=== PATIENT | female | born 1990 | race Caucasian/White ===

== ENCOUNTER 2018-04-23 14:47 | Emergency (ER) | payer OTHER ==
[~2018-04-23] VITALS: Ht 152.4 cm; Wt 47.2 kg
[~2018-04-23 14:47] MED LIST: CEPH500C PO; CLOB15CR10 TOP; NORE1TAB PO; [UNRECOGNIZED DRUG - CODE] PO; [UNRECOGNIZED DRUG - CODE] TOP
[2018-04-23 14:49] VITALS: Ht 152.4 cm; Wt 47.2 kg
[2018-04-23] MEDS ORDERED: KETOROLAC 15 MG INJ IV STA (15:45)
[2018-04-23] MEDS ORDERED: IOHEXOL 300MG/ML 150 ML BTL ONE (18:55)
[2018-04-23] MEDS ORDERED: SOD CHLORIDE 0.9% 100 ML ONE (18:55)
[2018-04-23] MEDS ORDERED: DEXAMETHASONE 10 MG/ML 1 ML INJ IV ONE (20:00)
[2018-04-23] MEDS ORDERED: PRED20TA PO (20:01)
[2018-04-23] MEDS ORDERED: TRAM50TA2 PO (20:01)
[2018-04-23] MEDS ORDERED: DOCU-144 PO (20:01)
--- NOTE | 2018-04-23 20:06 | ERD ---
ER Documentation Chief Complaint Chief Complaint pt bib family with c/o abd pain and blood in stool this am HPI 27-year-old female presents with bright red blood in the stool this morning. She has had some dark stools for a few days as well that she is taking Pepto- Bismol. She states that she has had intermittent constipation and diarrhea although she is having watery stools with blood today. By history it sounds that she has not had true constipation or hard stools. She denies fevers. She has nausea. She has a history of endometriosis and ovarian cyst. Denies any family history of inflammatory bowel disorder. ROS All systems reviewed and are negative except as per history of present illness. Medications Home Meds Active Scripts Tramadol HCl (Tramadol HCl) 50 Mg Tablet, 50 MG PO Q4 PRN for PAIN, #15 TAB Prov:RAYMUNDO HOFF MD 04/23/18 Docusate Sodium* (Colace*) 100 Mg Capsule, 100 MG PO BID, #30 CAP Prov:RAYMUNDO HOFF MD 04/23/18 Prednisone* (Prednisone*) 20 Mg Tab, 20 MG PO DAILY for 5 Days, TAB Prov:RAYMUNDO HOFF MD 04/23/18 Reported Medications Benzoin Compound (Alexi-Protect Sterile) 36 Ea Med..swab, 1 UNIT TOP PRN 10/11/11 Acetamin/Butalbital/Caffeine (Fioricet) 1 Tab Tab, 1 TAB PO PRN 10/11/11 Clobetasol Propionate (Embeline) 15 Gm Cream.gm., 15 GM TOP TID 10/11/11 Cephalexin* (Cephalexin*) 500 Mg Capsule, 500 MG PO TID 10/11/11 Noreth A-Et Estra/Fe Fumarate (Loestrin 24 Fe Tablet) 1 Tab Tablet, 1 TAB PO DAILY 10/11/11 Allergies Allergies: Coded Allergies: No Known Allergy (Unverified , 10/11/11) PMhx/Soc History of Surgery: Yes (CYST REMOVE ANTERIOR NECK, EPIDURAL X 3 ) Anesthesia Reaction: No Hx Neurological Disorder: Yes (TENSION HEADACHE) Hx Respiratory Disorders: No Hx Cardiac Disorders: No Hx Psychiatric Problems: No Hx Miscellaneous Medical Probl: No Hx Alcohol Use: Yes (SOCIALLY) Hx Substance Use: No Hx Tobacco Use: No Smoking Status: Never smoker FmHx Family History: No diabetes, No coronary disease, No other Physical Exam Vitals Vital Signs Date Temp Pulse Resp B/P (MAP) Pulse Ox O2 O2 Flow FiO2 Time Delivery Rate 04/23/18 98.2 75 75 127/70 98 Room Air 20:28 (89) 04/23/18 97.9 88 18 149/88 98 14:49 (108) Physical Exam Const: No acute distress Head: Atraumatic Eyes: Normal Conjunctiva ENT: Normal External Ears, Nose and Mouth. Neck: Full range of motion. No meningismus. Resp: Clear to auscultation bilaterally Cardio: Regular rate and rhythm, no murmurs Abd: Soft, mildly tender in the lower abdomen. No tenderness McBurney's point no Sellers sign. No rebound. Non distended. Normal bowel sounds Skin: No petechiae or rashes Back: No midline or flank tenderness Ext: No cyanosis, or edema Neur: Awake and alert Psych: Normal Mood and Affect Result Diagram: 04/23/18 1720 04/23/18 1720 Results 24 hrs Laboratory Tests Test 04/23/18 16:07 04/23/18 16:22 04/23/18 17:20 Urine Color STRAW Urine Clarity CLEAR Urine pH 7.0 Urine Specific [place] 1.004 Urine Ketones NEGATIVE mg/dL Urine Nitrite NEGATIVE mg/dL Urine Bilirubin NEGATIVE mg/dL Urine Urobilinogen NEGATIVE mg/dL Urine Leukocyte Esterase NEGATIVE Alejandrina/ul Urine Hemoglobin NEGATIVE mg/dL Urine Glucose NEGATIVE mg/dL Urine Total Protein NEGATIVE mg/dl POC Beta HCG, Qualitative NEGATIVE White Blood Count 13.2 10^3/ul Red Blood Count 4.91 10^6/ul Hemoglobin 14.6 g/dl Hematocrit 44.6 % Mean Corpuscular Volume 90.8 fl Mean Corpuscular Hemoglobin 29.7 pg Mean Corpuscular 32.7 g/dl Hemoglobin Concent Red Cell Distribution Width 12.5 % Platelet Count 252 10^3/UL Mean Platelet Volume 9.5 fl Immature Granulocytes % 0.500 % Neutrophils % 87.1 % Lymphocytes % 10.2 % Monocytes % 2.0 % Eosinophils % 0.0 % Basophils % 0.2 % Nucleated Red Blood Cells % 0.0 /100WBC Immature Granulocytes # 0.070 10^3/ul Neutrophils # 11.5 10^3/ul Lymphocytes # 1.3 10^3/ul Monocytes # 0.3 10^3/ul Eosinophils # 0.0 10^3/ul Basophils # 0.0 10^3/ul Nucleated Red Blood Cells # 0.0 10^3/ul Sodium Level 132 mmol/L Potassium Level 4.6 mmol/L Chloride Level 99 mmol/L Carbon Dioxide Level 20 mmol/L Anion Gap 13 Blood Urea Nitrogen 9 mg/dl Creatinine 0.45 mg/dl Est Glomerular Filtrat > 60 mL/min Rate mL/min Glucose Level 103 mg/dl Calcium Level 9.7 mg/dl Total Bilirubin 0.1 mg/dl Direct Bilirubin 0.00 mg/dl Indirect Bilirubin 0.1 mg/dl Aspartate Amino Transf (AST/SGOT) 31 IU/L Alanine < 6 IU/L Aminotransferase (ALT/SGPT) Alkaline Phosphatase 76 IU/L Total Protein 8.1 g/dl Albumin 4.4 g/dl Globulin 3.70 g/dl Albumin/Globulin Ratio 1.18 Lipase 107 U/L Current Medications Medications Dose Sig/Marianne Start Time Status Last (Trade) Ordered Route PRN Stop Time Admin Dose Reason Admin Ketorolac 15 mg ONCE STAT 04/23/18 DC Tromethamine IV 15:45 04/23/18 (Toradol) 15:46 Sodium 100 ml @ ud STK-MED 04/23/18 DC Chloride ONCE .ROUTE 18:55 04/23/18 18:56 Iohexol 150 ml STK-MED 04/23/18 DC (Omnipaque ONCE .ROUTE 18:55 04/23/18 300mg/ ml) 18:56 6 mg ONCE ONCE 04/23/18 DC 04/23/18 Dexamethasone IV 20:00 04/23/18 20:01 (Decadron) 20:01 Procedures/MDM Patient presents with lower abdominal pain and rectal bleeding of uncertain etiology. CBC shows minimal leukocytosis without anemia. CO2 is 20 slight decrease in sodium. Urine shows no significant abnormalities and urine hCG is negative. PROCEDURE: CT Abdomen and Pelvis with contrast. CLINICAL INDICATION: Pain. TECHNIQUE: CT scan of the abdomen and pelvis with contrast was performed on a multi-detector high-resolution CT scanner. The patient was scanned following the uncomplicated intravenous administration of 100 cc of Omnipaque 300 and oral contrast. Coronal and sagittal reformatted images were obtained from the axial source images. Images were reviewed on a high-resolution PACS workstation. The total exam CTDI equals 4.1 mGy and the total exam DLP equals 182.5 mGy-cm. DICOM images are available. One or more of the following dose reduction techniques were utilized: 1.) Automated exposure control 2.) Adjustment of the mA +/- kV according to patient's size 3.) Use of iterative reconstruction technique. COMPARISON: None. FINDINGS: Partially visualized minimal bibasilar pulmonary subsegmental atelectasis. Heart base appears normal. Systemic vasculature appears grossly normal. No pathologic lymphadenopathy identified by imaging criteria. Liver demonstrates normal size and contour, without identifiable focal mass lesion. Portal vein enhances normally. Gallbladder is mildly distended without identifiable biliary ductal dilatation. Pancreas, spleen and adrenal glands appear normal. Bowel is unobstructed without free air. Enteric contrast opacifies distal small bowel and colon to the level of the hepatic flexure. Appendix is nondilated. No identifiable significant diverticulosis nor evidence of acute diverticulitis. Contiguous mild circumferential wall thickening involves the mid - distal descending colon, sigmoid colon and rectum with mild associated mesocolic/perir ectal edema and mild dependent pelvic free fluid, suspicious for inflammatory proctocolitis such as ulcerative colitis or possibly Crohn's disease. Kidneys perfuse normally without identifiable focal mass lesion. No nephrolithiasis nor hydronephrosis. The ureters run unobstructed to a normal - appearing incompletely distended bladder. The uterus appears within normal limits for age. No pathologic adnexal mass identified. Osseous structures are intact with mild lumbar levoscoliosis which may reflect muscle spasm. Tiny fatty umbilical hernia. IMPRESSION: 1. Distal left colonic and rectal wall thickening suspicious for inflammatory proctocolitis such as ulcerative colitis or possibly Crohn's disease. Clinical correlation and follow-up colonoscopy recommended. 2. The bowel is unobstructed without evidence of perforation or abscess, and the appendix is nondilated. 3. No nephrolithiasis nor hydronephrosis. 4. Mild lumbar levoscoliosis may reflect muscle spasm. RPTAT: HSAN Physician Jorge Date Time Electronically viewed and signed by Mark Conde Physician on 04/23/2018 19:50 xN/ CC: RAYMUNDO HOFF MD Patient presents with signs and symptoms and radiologic findings consistent with stable rectal bleed with possibility of inflammatory bowel disorder such as Crohn's disease or ulcerative colitis. There is no signs of obstruction, abscess, perforation, sepsis. She was given Decadron 6 mrem IV. We will treat with a short course of prednisone, tramadol, Colace and recommendations for gastroenterology evaluation. She was advised she may need authorization from primary doctor for gastroneurology visit. Should return for fevers, vomiting, worsening pain, new worsening symptoms with primary care doctor. The patient was stable with no new complaints during the ER course. Clinically, there is no current evidence to suggest meningitis, sepsis, acute abdomen, pneumonia, stroke, acute coronary syndrome, pulmonary embolism, aortic dissection or any other emergent condition appearing to require further evaluation or hospitalization. Patient counseled regarding my diagnostic impression and care plan. Prior to discharge all questions answered. Pt agrees with treatment plan and understands strict return precautions. Pt is instructed to follow up with primary care provider within 24-48 hours. Precautionary instructions provided including instructions to return to the ER if not improving or for any worsening or changing symptoms or concerns. Stool culture, ova and parasites, C. difficile antigen ordered but patient was not able to provide a stool sample Departure Diagnosis: Primary Impression: Rectal bleed Condition: Stable Patient Instructions: Rectal Bleed, Stable Referrals: ANDREY FRANCES MD Additional Instructions: Examination today showed likely inflammatory bowel disease such as Crohn's disease or ulcerative colitis. Recommend gastroenterology for colonoscopy and further treatment. Recheck for fevers, vomiting, new or worsening symptoms. May need authorization from primary care doctor for specialist visit. RAYMUNDO HOFF MD Apr 23, 2018 20:06
[2018-04-23 20:28] VITALS: BP 127/70; PULSE 75; RESP 75
== END 2018-04-23 20:30 | disposition home or self-care (01) ==
LOC: FTE 14:47
DX: K62.5 Hemorrhage of anus and rectum (principal)
CPT/HCPCS: 74177; 80053; 81003; 81025; 83690; 85025; J1100; J1885; Q9967; Z7610; 96374

== ENCOUNTER 2018-10-11 07:44 | Day surgery (SDC) | payer OTHER ==
[~2018-10-11] VITALS: Ht 152.4 cm; Wt 43.4 kg
[~2018-10-11 07:44] MED LIST changes: +DOCU-144 PO; +GIANVI PO; +OMEP20CA16 PO; +PRED20TA PO; +TRAM50TA2 PO; +baclofen PO; +valacyclovir PO
[2018-10-11 08:15] VITALS: Ht 152.4 cm; Wt 43.4 kg
[2018-10-11 08:34] VITALS: BP 122/80; PULSE 69; RESP 24
[2018-10-11 10:02] VITALS: BP 118/71; RESP 18
[2018-10-11 10:07] VITALS: BP 109/71; PULSE 80; RESP 15
[2018-10-11 10:12] VITALS: BP 107/65; PULSE 76; RESP 13
[2018-10-11 10:17] VITALS: BP 111/68; PULSE 72; RESP 12
[2018-10-11 10:20] VITALS: BP 111/73; PULSE 71; RESP 18
[2018-10-11] MEDS ORDERED: MIDAZOLAM 1 MG/ML 2 ML INJ ONE ×4 (10:25→10:26)
[2018-10-11] MEDS ORDERED: FENTAnyl 50 MCG/ML VIAL ONE (10:26)
== END 2018-10-11 11:49 | disposition home or self-care (01) ==
LOC: GIL 07:44
PROVIDERS: ATTEND Internal Medicine Gastroenterology
DX: K29.50 Unspecified chronic gastritis without bleeding (principal); K52.9 Noninfective gastroenteritis and colitis, unspecified; K92.1 Melena
CPT/HCPCS: 43239; 45380; 84703; J2250; J3010; Z7610; 88305; 88312; 88313